=== PATIENT | male | born 1945 | race Caucasian/White ===

== ENCOUNTER 2023-03-22 13:13 | Day surgery (SDC) | payer OTHER ==
[~2023-03-22] VITALS: Ht 175.3 cm; Wt 87.1 kg
[~2023-03-22 13:13] MED LIST: ALBU90OI61 INH; ASPI325 PO; BUDE6HFA INH; CLOP75 PO; DOXA4 PO; LOSA25 PO; LOSHYD100 PO; MONT10T PO; Omeprazole20 M1 PO; SIMV40 PO; TIOT18 INH
[2023-03-22] MEDS ORDERED: ELIQUIS5 M2 PO (13:45)
[2023-03-22] MEDS ORDERED: CARV3.125 PO (13:45)
[2023-03-22] MEDS ORDERED: Vitamin D1000 UNI1 PO (13:46)
[2023-03-22] MEDS ORDERED: Flonase 0.05% N16 GM (13:47)
[2023-03-22] MEDS ORDERED: DULERA 100 MCG/13 GM INH (13:48)
[2023-03-22] MEDS ORDERED: OMEP20ER PO (13:48)
[2023-03-22] MEDS ORDERED: POTCHL20ER PO (13:49)
[2023-03-22] MEDS ORDERED: SERT100 PO (13:50)
[2023-03-22] MEDS ORDERED: ZOCOR20 MG PO (13:50)
[2023-03-22] MEDS ORDERED: TAMS.4ER PO (13:50)
[2023-03-22] MEDS ORDERED: TIOT18 INH (13:51)
[2023-03-22 17:15] VITALS: BP 116/80
== END 2023-03-22 17:16 | disposition home or self-care (01) ==
LOC: ORSCSDS 13:13
PROVIDERS: Surgery
PROC: 0DBH8ZX Excision of Cecum, Via Natural or Artificial Opening Endoscopic, Diagnostic (ICD-10-PCS; principal; 2023-03-22 14:30)
PROC: 0DBN8ZX Excision of Sigmoid Colon, Via Natural or Artificial Opening Endoscopic, Diagnostic (ICD-10-PCS; principal; 2023-03-22 14:30)
PROC: 0DB78ZX Excision of Stomach, Pylorus, Via Natural or Artificial Opening Endoscopic, Diagnostic (ICD-10-PCS; principal; 2023-03-22 14:30)
PROC: 0DBM8ZX Excision of Descending Colon, Via Natural or Artificial Opening Endoscopic, Diagnostic (ICD-10-PCS; principal; 2023-03-22 14:30)
DX: K63.9 Disease of intestine, unspecified (principal); K21.9 Gastro-esophageal reflux disease without esophagitis; R11.0 Nausea; R63.4 Abnormal weight loss; Z87.11 Personal history of peptic ulcer disease; K29.70 Gastritis, unspecified, without bleeding; K31.7 Polyp of stomach and duodenum; D12.0 Benign neoplasm of cecum; D12.5 Benign neoplasm of sigmoid colon; K63.5 Polyp of colon; J44.9 Chronic obstructive pulmonary disease, unspecified; I10 Essential (primary) hypertension; I48.91 Unspecified atrial fibrillation; Z79.01 Long term (current) use of anticoagulants; I25.2 Old myocardial infarction; I25.10 Atherosclerotic heart disease of native coronary artery without angina pectoris; Z79.899 Other long term (current) drug therapy
CPT/HCPCS: 88305; 88342; J0461; J2001; J2405; J2704; J7120; Q9968